=== PATIENT | male | born 1960 | race Caucasian/White ===

== ENCOUNTER 2020-03-24 12:23 | Outpatient (REF) | payer OTHER, SELFPAY | END 2020-03-24 12:24 | disposition home or self-care (01) | LOC: HO.HMGCLDS 12:23 | PROVIDERS: Visit Provider Internal Medicine | DX: Z20.828 Contact with and (suspected) exposure to other viral communicable diseases (principal) | CPT/HCPCS: C9803; U0003 ==

== ENCOUNTER 2020-05-15 09:10 | Outpatient (REF) | payer OTHER, SELFPAY | END 2020-05-15 09:11 | disposition home or self-care (01) | LOC: HO.LAB 09:10 | PROVIDERS: Visit Provider Physician Assistant | DX: J32.1 Chronic frontal sinusitis (principal); Z20.822 Contact with and (suspected) exposure to COVID-19 | CPT/HCPCS: 36415; U0003 ==

== ENCOUNTER 2020-10-05 11:46 | Outpatient (REF) | payer OTHER, SELFPAY ==
--- NOTE | ~2020-10-05 | XR_ITS ---
EXAMINATION: XR WRIST, LEFT CLINICAL INFORMATION: Left wrist pain. COMPARISON: None TECHNIQUE: PA, lateral, and oblique views of the left wrist. FINDINGS: Moderate first carpometacarpal degenerative joint changes are seen with joint space narrowing,. Irregular sclerosis and moderate marginal osteophyte formation. The carpal bones are normally aligned. Mild radiocarpal degenerative joint changes are seen. The distal radius and ulna are intact. The soft tissues are unremarkable. XR/XR wrist LT min 3V IMPRESSION: 1. Moderate first carpometacarpal and mild radiocarpal degenerative joint changes suggesting osteoarthritis. No acute abnormality.
[2020-10-05 13:59] LABS: MANUAL DIFF FLAG NO
[2020-10-05 14:02] LABS: Basophils Percent Auto 0.4 % (0-2); Eosinophils Absolute Auto 0.2 X10*3/uL (0.0-0.4); Hematocrit 44.7 % (42-52); Hemoglobin 15.3 g/dl (14.0-18.0); Imm Gran Abs Auto 0.01 X10*3/uL (0.00-0.03); Imm Gran Pct Auto 0.1 % (0.0-0.4); Lymphocytes Absolute Auto 1.8 X10*3/uL (1.2-4.9); Lymphocytes Percent Auto 24.2 % (20-40); Mean Corpuscular HGB Conc 34.2 g/dl (31.0-36.0); Mean Corpuscular Hemoglobin 31.7 pg (27.0-33.0); Mean Corpuscular Volume 92.5 fL (80-98); Mean Platelet Volume 12.1 fL (9.4-12.4); Monocytes Absolute Auto 0.6 X10*3/uL (0.1-1.2); Monocytes Percent Auto 8.1 % (2-11); Neutrophils Absolute Auto 4.9 X10*3/uL (2.0-8.3); Neutrophils Percent Auto 65.2 % (45-73); Platelet Count 201 X10*3/uL (160-400); Red Blood Count 4.83 X10*6/uL (4.60-5.80); White Blood Count 7.6 X10*3/uL (4.8-10.8)
[2020-10-05 14:25] LABS: Alanine Aminotransferase 52 U/L (0-40); Albumin Level 4.8 g/dL (3.5-5.0); Alkaline Phosphatase 54 U/L (39-117); Anion Gap 17 (12-20); Aspartate Amino Transferase 53 U/L (5-37); Bilirubin Total 1.2 mg/dL (0.0-1.0); Blood Urea Nitrogen 14 mg/dL (9-16); Carbon Dioxide 24 mmol/L (22-29); Chloride 102 mmol/L (96-108); Cholesterol 204 mg/dL; Estimated Glomerular Filt Rate > 60; Glucose Fasting 80 mg/dL (60-99); HDL Cholesterol 64 mg/dL; LDL Cholesterol Calculated 109 mg/dl; Potassium 4.9 mmol/L (3.3-5.1); Sodium 138 mmol/L (135-145); Total Protein 7.2 g/dL (6.5-8.0); Triglycerides 157 mg/dL
[2020-10-05 15:01] LABS: Prostate Specific Antigen Scr 0.36 ng/mL (<0.05-4.0)
== END 2020-10-05 11:47 | disposition home or self-care (01) ==
LOC: HO.HMGCX 11:46
PROVIDERS: PCP Internal Medicine; Visit Provider Hospitalist
DX: M25.532 Pain in left wrist (principal); R73.01 Impaired fasting glucose; I11.9 Hypertensive heart disease without heart failure
CPT/HCPCS: 36415; 73110; 80053; 80061; 84153; 85025

== ENCOUNTER 2020-11-30 10:59 | Outpatient (REF) | payer OTHER, SELFPAY ==
--- NOTE | ~2020-11-30 | XR_ITS ---
EXAMINATION: XR CHEST CLINICAL INFORMATION: Cough COMPARISON: May 24, 2019 TECHNIQUE: 2 views of the chest were obtained. FINDINGS: No significant abnormality is noted involving the heart, lungs, mediastinum, bony thorax or soft tissues. XR/XR chest 2V IMPRESSION: No acute disease.
== END 2020-11-30 11:00 | disposition home or self-care (01) ==
LOC: HO.HMGCX 10:59
PROVIDERS: PCP Internal Medicine; Visit Provider Internal Medicine
DX: R05 Cough (principal)
CPT/HCPCS: 71046

== ENCOUNTER 2020-12-03 08:56 | Emergency (ER) | payer OTHER, SELFPAY ==
--- NOTE | ~2020-12-03 | US_ITS ---
EXAMINATION: US VENOUS ULTRASOUND WITH DOPPLER LOWER EXTREMITY, RIGHT CLINICAL INFORMATION: Right leg swelling. COMPARISON: None TECHNIQUE: Ultrasound of the deep veins is performed from the hip to the calf with compression sonography and color and pulse Doppler assessment. Spectral analysis with color-flow imaging is performed. FINDINGS: There is normal venous compression and respiratory variation and augmented flow. The visualized common femoral vein, superficial femoral vein, profunda femoral vein shows no evidence of deep venous thrombosis. There is acute thrombus visualized in the right popliteal vein and right posterior tibial vein. There is no significant popliteal fossa cyst. If the patient's symptoms persist, followup ultrasound in 5 days 7 days might be of value to exclude proximal propagation from a non-visualized calf vein. US/US venous duplex LE RT IMPRESSION: Acute DVT demonstrated in the right popliteal vein and right posterior tibial vein
[2020-12-03 09:15] VITALS: BP 136/91; PULSE 100; RESP 16; TEMP 37.3; O2SAT 96; BMI 30.1
[2020-12-03 10:04] LABS: Alanine Aminotransferase 28 U/L (0-40); Albumin Level 4.4 g/dL (3.5-5.0); Alkaline Phosphatase 58 U/L (39-117); Anion Gap 13 (12-20); Aspartate Amino Transferase 25 U/L (5-37); Bilirubin Total 1.2 mg/dL (0.0-1.0); Blood Urea Nitrogen 7 mg/dL (9-16); Calcium 9.4 mg/dL (8.4-10.2); Carbon Dioxide 24 mmol/L (22-29); Chloride 106 mmol/L (96-108); Creatinine Clr Calc Pharmacy 102.2; Estimated Glomerular Filt Rate > 60; Glucose Random 104 mg/dL (60-115); Potassium 4.3 mmol/L (3.3-5.1); Sodium 139 mmol/L (135-145); Total Protein 6.7 g/dL (6.5-8.0)
--- NOTE | 2020-12-03 10:07 | ED.EXTPRO ---
HPI - Extremity Problem General Chief complaint: Extremity Injury, Lower Stated complaint: pain and swelling on leg Time Seen by Provider: 12/03/20 10:15 Source: patient Mode of arrival: ambulatory Limitations: no limitations History of Present Illness HPI Narrative: Patient presents to ED for couple days of right lower extremity swelling with pain. Patient states right leg was significantly swollen but has started resolving but still slightly swollen and painful. Patient denies any recent trauma to right lower extremity. Patient states no chest pain or shortness of breath. Patient admits to calf pain. MD Complaint: extremity pain and extremity swelling Related Data Home Medications Medication Instructions Recorded Confirmed flu vacc [id number] 6mos up(PF) ml IM ONCE 05/15/20 10/05/20 Previous Rx's Medication Instructions Recorded metoprolol succinate 25 mg 25 mg PO DAILY #90 tab 04/06/20 tablet,extended release 24 hr valsartan 80 mg tablet (Diovan) 80 mg PO DAILY #30 tab 10/05/20 apixaban 5 mg (74 tabs) tablets in 5 mg PO PER PKG DIR #74 ea 12/03/20 a dose pack (EliquInotec AMD DVT-PE Treat 30D Start) Allergies Allergy/AdvReac Type Severity Reaction Status Date / Time piroxicam [From FELDENE] Allergy Intermediate ITCHINESS Verified 10/05/20 11:25 allopurinol AdvReac Unknown anxiety Verified 10/05/20 11:25 Review of Systems Review of Systems: Yes all other systems are reviewed and are negative and unobtainable due to endotracheal tube Constitutional: Constitutional: Reports as per HPI and Reports no additional constitutional complaints Eyes: Eyes: Reports as per HPI and Reports no additional eye complaints ENT: Reports system reviewed and no additional complaints, except as documented and Reports as per HPI Cardiovascular: Cardiovascular: Reports as per HPI and Reports no additional cardiovascular complaints Respiratory: Respiratory: Reports as per HPI and Reports no additional respiratory complaints Gastrointestinal: Gastrointestinal: Reports as per HPI and Reports no additional gastrointestinal complaints Genitourinary: Genitourinary: Reports no additional male genitourinary complaints and Reports as per HPI Musculoskeletal: Musculoskeletal: Reports no additional musculoskeletal complaints and Reports as per HPI Comments: Right lower extremity swelling and pain Neurologic: Reports system reviewed and no additional complaints, except as documented and Reports as per HPI Psychiatric: Psychiatric: Reports no additional psychiatric complaints and Reports as per HPI Endocrine: Endocrine: Reports no additional endocrine complaints and Reports as per HPI [facility] Past Medical History Medical History GERD (gastroesophageal reflux disease) Gout Hemorrhoids History of echocardiogram Hx of migraines Hypertension Impaired fasting glucose LVH (left ventricular hypertrophy) Surgical History H/O colonoscopy History of elbow surgery History of esophagogastroduodenoscopy (EGD) History of tonsillectomy S/P wrist surgery Status post knee surgery Social History Social History Advance Directives: No Advance Directives Information Provided: No Physical Exam Vital Signs: Vital Signs: Last Vital Signs Temp 99.2 F 12/03/20 09:15 Pulse 100 12/03/20 09:15 Resp 16 12/03/20 09:15 BP 136/91 H 12/03/20 09:15 Pulse Ox 96 12/03/20 09:15 Body Mass Index 30.1 Const: General: cooperative, healthy appearing, comfortable, no acute distress, well developed, alert, awake and Physically active Orientation/consciousness: patient oriented x3 HENMT: Head: Yes normal to inspection, Yes No palpable skull fracture present, Yes normocephalic and Yes atraumatic Eyes: General: appearance normal, both eyes and all related structures Neck: Neck: Yes normal visual inspection, Yes full ROM, Yes no lymphadenopathy, Yes no meningeal signs, Yes trachea midline, Yes supple and No tender Chest: Chest palpation & inspection: normal inspection of the chest and normal palpation of entire chest wall Resp: Effort & Inspection: normal respiratory effort and able to speak in complete sentences Auscultation: clear to auscultation bilaterally Cardio: Jugular venous distension: no JVD Heart sounds: S1 normal heart sound present and S2 normal heart sound present GI: Inspection: Yes normal to inspection and No abdominal wall ecchymosis Palpation (GI): Soft to palpation, not firm, nontender, no guarding and not rigid : General: No CVA tenderness and Yes no CVA tenderness Back/Spine/Pelvis: Back: no CVA tenderness, No CVA tenderness, No back tenderness and No Klein-Colbert sign present Skin: General skin exam: no rashes or lesions noted and elasticity normal Neuro: General: patient oriented x3, gait normal, no meningeal signs and CN's II-XI intact bilaterally Cranial nerves: Yes CN's II-XII intact bilaterally Extrem: Upper/lower leg/hip images: 1. Leg swelling with calf pain. Warmth. Slight erythematous. Vascular/motor/neuro exam intact. Positive for pitting edema Course Course Course Narrative: Patient will have labs drawn. Some right lower extremity ultrasound ordered. Reevaluation(s) Reevaluation #1: Ultrasound came back positive for blood clots. Kidney function is normal. Coags are normal. Patient has normal red blood cells. Patient will be discharged with Eliquis. Time: 10:53 MDM - Extremity (Nontraumatic) MDM Narrative Medical decision making narrative: DVT Lab Data Result diagrams: 12/03/20 10:18 12/03/20 09:34 Labs: Lab Results 12/03/20 12/03/20 12/03/20 Range/Units 09:34 09:34 10:18 WBC 8.8 (4.8-10.8) X10*3/uL RBC 4.60 (4.60-5.80) X10*6/uL Hgb 14.6 (14.0-18.0) g/dl Hct 42.5 (42-52) % MCV 92.4 (80-98) fL MCH 31.7 (27.0-33.0) pg MCHC 34.4 (31.0-36.0) g/dl RDW 13.1 (11.0-16.0) % Plt Count 202 (160-400) X10*3/uL MPV 11.5 (9.4-12.4) fL Immature Gran % (Auto) 0.2 (0.0-0.4) % Neut % (Auto) 56.9 (45-73) % Lymph % (Auto) 27.4 (20-40) % Zapata % (Auto) 11.0 (2-11) % Eos % (Auto) 3.9 (0-4) % Baso % (Auto) 0.6 (0-2) % Lymph # (Auto) 2.4 (1.2-4.9) X10*3/uL Zapata # (Auto) 1.0 (0.1-1.2) X10*3/uL Eos # (Auto) 0.3 (0.0-0.4) X10*3/uL Baso # (Auto) 0.1 (0.0-0.2) X10*3/uL Abs Immat Gran (auto) 0.02 (0.00-0.03) X10*3/uL Absolute Neuts (auto) 5.0 (2.0-8.3) X10*3/uL Absolute Nucleated RBC 0.000 (0.0-0.012) X10*3/uL Nucleated RBC % (auto) 0.0 (0.0-0.2) /100WBC PT 11.7 (9.9-13.0) SEC INR 1.0 (0.9-1.1) APTT 33.1 (24.1-38.0) SEC Sodium 139 (135-145) mmol/L Potassium 4.3 (3.3-5.1) mmol/L Chloride 106 (96-108) mmol/L Carbon Dioxide 24 (22-29) mmol/L Anion Gap 13 (12-20) BUN 7 L (9-16) mg/dL Creatinine 0.89 (0.5-1.4) mg/dL Estim Creat Clear Calc 102.2 Estimated GFR > 60 Random Glucose 104 (60-115) mg/dL Calcium 9.4 (8.4-10.2) mg/dL Total Bilirubin 1.2 H (0.0-1.0) mg/dL AST 25 D (5-37) U/L ALT 28 (0-40) U/L Alkaline Phosphatase 58 (39-117) U/L Total Protein 6.7 (6.5-8.0) g/dL Albumin 4.4 (3.5-5.0) g/dL Discharge Plan Discharge Clinical Impression: DVT (deep venous thrombosis) Patient Disposition: Home, Self-Care Instructions: Deep Vein Thrombosis (ED) Additional Instructions: Your blood work came back normal. Ultrasound came back positive for DVT. He will need Eliquis to treat DVT. Return to the ED immediately for any chest pain, shortness of breath, dizziness, passing out, coughing up blood, or any other concerning symptoms. Prescriptions: New Eliquis DVT-PE Treat 30D Start 5 mg (74 tabs) tablets,dose pack 5 mg PO PER PKG DIR Qty: 74 RF: 0 No Action metoprolol succinate 25 mg tablet extended release 24 hr 25 mg PO DAILY Qty: 90 RF: 3 Fluzone Quad [id number] (PF) 60 mcg (15 mcg x 4)/0.5 mL syringe IM ONCE RF: 0 valsartan [Diovan] 80 mg tablet 80 mg PO DAILY Qty: 30 RF: 3 Referrals: Alda Rowe MD [Primary Care Provider] - 2 days (Right lower extremity DVT.) Nuvia Gay MD [Physician] - 2 days (Right lower extremity DVT.) Stand Alone Forms: Work/School Release Interventions: ED Discharge Assessment Last Done: 12/03/20 11:08 Discharge Date/Time: 12/03/20 11:09 Print Language: Sammarinese
[2020-12-03 10:23] LABS: Prothrombin Time 11.7 SEC (9.9-13.0)
[2020-12-03 10:26] LABS: Partial Thromboplastin Time 33.1 SEC (24.1-38.0)
[2020-12-03 10:41] LABS: Basophils Absolute Auto 0.1 X10*3/uL (0.0-0.2); Basophils Percent Auto 0.6 % (0-2); Eosinophils Absolute Auto 0.3 X10*3/uL (0.0-0.4); Eosinophils Percent Auto 3.9 % (0-4); Hematocrit 42.5 % (42-52); Hemoglobin 14.6 g/dl (14.0-18.0); Imm Gran Abs Auto 0.02 X10*3/uL (0.00-0.03); Imm Gran Pct Auto 0.2 % (0.0-0.4); Lymphocytes Absolute Auto 2.4 X10*3/uL (1.2-4.9); Lymphocytes Percent Auto 27.4 % (20-40); Mean Corpuscular HGB Conc 34.4 g/dl (31.0-36.0); Mean Corpuscular Hemoglobin 31.7 pg (27.0-33.0); Mean Corpuscular Volume 92.4 fL (80-98); Mean Platelet Volume 11.5 fL (9.4-12.4); Neutrophils Percent Auto 56.9 % (45-73); Platelet Count 202 X10*3/uL (160-400); Red Cell Distribution Width 13.1 % (11.0-16.0); White Blood Count 8.8 X10*3/uL (4.8-10.8)
== END 2020-12-03 11:09 | disposition home or self-care (01) ==
PROVIDERS: Physician Assistant; Emergency Provider Student in an Organized Health Care Education/Training Program; PCP Internal Medicine
DX: I82.401 Acute embolism and thrombosis of unspecified deep veins of right lower extremity (principal); M79.661 Pain in right lower leg; R60.0 Localized edema; Z79.899 Other long term (current) drug therapy
CPT/HCPCS: 36415; 80053; 85025; 85610; 85730; 93971; 99283

== ENCOUNTER 2020-12-13 14:49 | Outpatient (REF) | payer OTHER, SELFPAY ==
--- NOTE | ~2020-12-13 | US_ITS ---
EXAMINATION: US VENOUS ULTRASOUND WITH DOPPLER LOWER EXTREMITY, RIGHT CLINICAL INFORMATION: Increasing right leg pain. COMPARISON: Ultrasound right lower extremity venous study 12/03/2020 TECHNIQUE: Ultrasound of the deep veins is performed from the hip to the calf with compression sonography and color and pulse Doppler assessment. Spectral analysis with color-flow imaging is performed. FINDINGS: There is normal venous compression and respiratory variation and augmented flow. The visualized common femoral vein, superficial femoral vein, profunda femoral veins shows no evidence of deep venous thrombosis. There is an occluded right popliteal vein positive for DVT. The right posterior tibial, peroneal veins are patent. If the patient's symptoms persist, followup ultrasound in 5 days 7 days might be of value to exclude proximal propagation from a non-visualized calf vein. US/US venous duplex LE RT IMPRESSION: Persistent DVT in the right popliteal vein unchanged to 12/03/2020 exam. The right posterior tibial vein appears patent at this time was occluded before. The right common femoral, superficial femoral and the greater saphenous veins are patent. There is no evidence of Patino's cyst.
== END 2020-12-13 14:50 | disposition home or self-care (01) ==
LOC: HO.US 14:49
PROVIDERS: PCP Internal Medicine; Visit Provider Internal Medicine Medical Oncology
DX: I82.409 Acute embolism and thrombosis of unspecified deep veins of unspecified lower extremity (principal); M79.604 Pain in right leg
CPT/HCPCS: 93971

== ENCOUNTER 2021-01-02 10:18 | Outpatient (REF) | payer OTHER, SELFPAY ==
[2021-01-02 12:22] LABS: Vitamin D 25-OH Total 31.4 ng/mL (>30)
[2021-01-02 12:24] LABS: Vitamin B12 422 pg/mL (200-900)
[2021-01-02 14:42] LABS: Uric Acid 9.1 mg/dL (3.4-7.0)
[2021-01-06 11:41] LABS: Vitamin B6 93.7 ng/mL (2.1-21.7)
[2021-01-07 10:10] LABS: Vitamin B1 47 nmol/L (8-30)
== END 2021-01-02 10:19 | disposition home or self-care (01) ==
LOC: HO.HMGCLDS 10:18
PROVIDERS: PCP Internal Medicine; Visit Provider Internal Medicine
DX: I10 Essential (primary) hypertension (principal); I82.409 Acute embolism and thrombosis of unspecified deep veins of unspecified lower extremity; M10.9 Gout, unspecified
CPT/HCPCS: 36415; 82306; 82607; 84207; 84425; 84550

== ENCOUNTER 2021-01-10 07:48 | Outpatient (REF) | payer OTHER, SELFPAY ==
--- NOTE | ~2021-01-10 | CT_ITS ---
EXAMINATION: CT CHEST WITH CONTRAST CLINICAL INFORMATION: Former smoker. Cough. Recent DVT. COMPARISON: Previous chest x-ray November 2020. TECHNIQUE: Multidetector volumetric CT imaging of the chest was obtained after the administration of 65 mL of Omnipaque 350 intravenous contrast without immediate adverse reactions. Axial MIP volume rendering provided. Sagittal and coronal reformatted images were obtained. This CT examination was performed using dose optimization techniques as appropriate, variously including the following: *Automated exposure control *Adjustment of mA and/or kV according to patient size (this includes techniques or standardized protocols for targeted exams where dose is matched to indication/reason for exam; i.e. extremities or head) *Use of iterative reconstruction technique DLP: 184 mGy-cm. FINDINGS: RIB TRIM SEPARATOR: Unremarkable. LUNGS: The lungs are clear. No evidence of emphysema interstitial lung disease or bronchiectasis is seen. There is no endobronchial or endotracheal lesion. MEDIASTINUM: There are small mediastinal lymph nodes. No enlarged lymph nodes are seen. There is a small amount of fluid seen in the superior pericardial recess. Mediastinum is otherwise normal. PLEURA: There is no pleural effusion. No pleural mass or thickening. AXILLA: No lymphadenopathy. UPPER ABDOMEN: The liver is low in attenuation suggestive of fatty infiltration. There is lobulated contour to the left kidney. OSSEOUS STRUCTURES: There are degenerative changes of the spine. CT/CT chest w con IMPRESSION: Unremarkable exam.
[2021-01-10 08:22] LABS: Blood Urea Nitrogen 9 mg/dL (9-16); Estimated Glomerular Filt Rate > 60
[2021-01-10] MEDS: iohexoL 350 MG/ML 100 ML INFUS..BTL IV (09:34)
== END 2021-01-10 07:49 | disposition home or self-care (01) ==
LOC: HO.CT 07:48
PROVIDERS: Visit Provider Internal Medicine
DX: R05 Cough (principal); I82.401 Acute embolism and thrombosis of unspecified deep veins of right lower extremity; Z87.891 Personal history of nicotine dependence
CPT/HCPCS: 36415; 71260; 82565; 84520; Q9967

== ENCOUNTER 2021-01-21 10:23 | Emergency (ER) | payer OTHER, SELFPAY ==
[2021-01-21 10:50] VITALS: BP 145/98; PULSE 99; RESP 16; TEMP 36.6; O2SAT 98; BMI 30.1
[2021-01-21] MEDS: Diphth,Pertus(ACell),Tet Adult 0.5 ML SYRINGE IM (11:50)
[2021-01-21] MEDS: Amoxicillin/Potassium Clav 875 MG TABLET PO (11:50)
[2021-01-21] MEDS: Lidocaine HCl 1 % MPF 5 ML VIAL SUBCUT (11:50)
--- NOTE | 2021-01-21 13:03 | ED_ITS ---
HPI - Animal Bite General Chief Complaint: Animal Bite Stated Complaint: DOG BITE Time Seen by Provider: 01/21/21 11:37 Source: patient Mode of arrival: ambulatory History of Present Illness HPI narrative: 60-year-old male with a past medical history of DVT on Eliquis, GERD, gout, hemorrhoids, migraines, HTN, LVH, presenting to the ED complaining of dog bite to right hand since 11:00 p.m. last night. Reports was bit by own dog. Dog is up-to-date on vaccinations, patient's tetanus is unknown. Reports mild pain to area. Denies numbness, tingling, weakness, fever, chills, injury to other area MD complaint: animal bite Related Data Home Medications Medication Instructions Recorded Confirmed ascorbic acid (vitamin C) 500 mg 500 mg PO DAILY 01/16/21 01/16/21 tablet (Vitamin C) cholecalciferol (vitamin D3) 10 10 mcg PO DAILY 01/16/21 01/16/21 mcg (400 unit) capsule (Vitamin D3) colchicine 0.6 mg tablet 1 tab PO DAILY 01/16/21 01/16/21 multivitamin 1 tab PO DAILY 01/16/21 01/16/21 Previous Rx's Medication Instructions Recorded valsartan 80 mg tablet (Diovan) 80 mg PO DAILY #30 tab 10/05/20 apixaban 5 mg tablet (Eliquis) 5 mg PO BID #60 tab 01/16/21 omeprazole 40 mg capsule,delayed 40 mg PO DAILY #90 cap 01/16/21 release amoxicillin 875 mg-potassium 1 tab PO Q12H 7 Days #14 tab 01/21/21 clavulanate 125 mg tablet (Augmentin) bacitracin 500 unit/gram topical 1 appl TOPICAL BID #30 g 01/21/21 ointment Allergies Allergy/AdvReac Type Severity Reaction Status Date / Time piroxicam [From FELDENE] Allergy Intermediate ITCHINESS Verified 01/16/21 08:22 allopurinol AdvReac Unknown anxiety Verified 01/16/21 08:22 Review of Systems Review of Systems: Constitutional: No Fever, No Chills ENT/Mouth: No Ear Pain, No Nasal Congestion, No sore throat, No Rhinorrhea Cardiovascular: No Chest Pain, No SOB Respiratory: No Cough Gastrointestinal: No Nausea, No Vomiting, No Abdominal pain Genitourinary:, No Dysuria, No Urinary Frequency, No Hematuria, No Flank Pain Musculoskeletal: No joint pain, No Myalgias, No Joint Swelling Skin: + Skin Lesions, No rash Neuro: No Weakness, No Numbness, No Paresthesias Yes all other systems are revi ewed and are negative [facility] Past Medical History Attestation statement: The following information was validated with the patient. Medical History (Updated 01/21/21 @ 13:05 by TYRONE Eli) DVT (deep venous thrombosis) GERD (gastroesophageal reflux disease) Gout Hemorrhoids History of echocardiogram Hx of migraines Hypertension Impaired fasting glucose LVH (left ventricular hypertrophy) Surgical History H/O colonoscopy History of elbow surgery History of esophagogastroduodenoscopy (EGD) History of tonsillectomy S/P wrist surgery Status post knee surgery Family History Family History Mother Lung cancer Diabetes Father Alzheimer disease Maternal Aunt Brain cancer Maternal Uncle Brain cancer Paternal Grandmother Dementia Social History Social History Alcohol intake: current Alcohol intake frequency: a few times a week Alcohol type: beer Patient Tobacco Use Status: Former Tobacco user Quit Date: 2017 Tobacco use type: Cigarette e-Cigarette/Vaping Use: Never Used Advance Directives: Yes Advance Directives Information Provided: Yes Advance Directives on File: No Physical Exam Vital Signs: Vital Signs: Last Vital Signs Temp 98 F 01/21/21 10:50 Pulse 99 01/21/21 10:50 Resp 16 01/21/21 10:50 BP 145/98 H 01/21/21 10:50 Pulse Ox 98 01/21/21 10:50 Body Mass Index 30.1 Const: General: cooperative and healthy appearing Orientation/consciousness: patient oriented x3 Limitations: no limitations HENMT: Head: Yes normal to inspection Ears: hearing grossly normal bilaterally General nose exam: Normal external nose present Face and sinus: Yes normal facial exam Eyes: General: appearance normal, both eyes and all related structures EOM: EOMs intact bilaterally Neck: Neck: Yes normal visual inspection and Yes no meningeal signs Resp: Effort & Inspection: normal respiratory effort and no respiratory distress Cardio: Rate: regular rate Peripheral pulses: radial pulses present Skin: Other: 1.5 cm deeplaceration noted between 1st and 2nd MCP web space. No fluctuance/induration or surrounding cellulitis Rashes: no rashes Neuro: General: patient oriented x3 and no meningeal signs Gait exam (Neuro): Normal gait present Extrem: Other: Full range of motion to Hand intact. Finger to thumb opposition intact MDM - Animal Bite MDM Narrative Medical decision making narrative: 60-year-old male with a past medical history of DVT on Eliquis, GERD, gout, hemorrhoids, migraines, HTN, LVH, presenting to the ED complaining of dog bite to right hand since 11:00 p.m. last night. On exam VSS, NAD/well-appearing. Discussed with patient will closely approximate due to depth of laceration, discussed risks of infection Will update patient's tetanus and give 1st dose of antibiotics Procedures Laceration Laceration 1: Site: hand Side (If applicable): right Size (cm): 1.5 Description: irregular Depth: simple, single layer Local Anesthetic: lidocaine 1% Pre-repair: wound explored and irrigated extensively Skin layer closed with: nylon Size (cm): 4-0 Number of sutures: 2 Technique: simple, interrupted Discharge Plan Discharge Clinical Impression: Laceration Dog bite Qualifiers: Encounter type: initial encounter Qualified Code(s): W54.0XXA - Bitten by dog, initial encounter Patient Disposition: Home, Self-Care Instructions: Animal Bite (ED) Additional Instructions: Return to any emergency department or urgent care in 7-10 days to have her stitches taken out Augmentin as antibiotic, please take as prescribed Apply bacitracin or Neosporin to your wound Keep area dry and clean Keep a close eye on it this has high likelihood of infection If the the area becomes red, there is drainage, there is red streaking it is inflamed it becomes very painful return to the ED immediately Prescriptions: New amoxicillin-pot clavulanate [Augmentin] 875-125 mg tablet 1 tab PO Q12H 7 Days Qty: 14 RF: 0 bacitracin 500 unit/gram ointment 1 appl topical BID Qty: 30 RF: 0 No Action multivitamin Tablet 1 tab PO DAILY RF: 0 ascorbic acid (vitamin C) [Vitamin C] 500 mg Tablet 500 mg PO DAILY RF: 0 colchicine 0.6 mg tablet 1 tab PO DAILY RF: 0 cholecalciferol (vitamin D3) [Vitamin D3] 10 mcg (400 unit) Capsule 10 mcg PO DAILY RF: 0 omeprazole 40 mg capsule,delayed release(DR/EC) 40 mg PO DAILY Qty: 90 RF: 3 Eliquis 5 mg Tablet 5 mg PO BID Qty: 60 RF: 3 valsartan [Diovan] 80 mg tablet 80 mg PO DAILY Qty: 30 RF: 3 Referrals: Alda Rowe MD [Primary Care Provider] - 1 week Canales,Elizabeth Mejia MD [Emergency Provider] - 1 week (7-10 days to have your stitches taken out) Interventions: ED Discharge Assessment Last Done: 01/21/21 13:17 Discharge Date/Time: 01/21/21 13:18
== END 2021-01-21 13:18 | disposition home or self-care (01) ==
PROVIDERS: Emergency Provider Emergency Medicine Emergency Medical Services; PCP Internal Medicine
DX: S61.411A Laceration without foreign body of right hand, initial encounter (principal); M79.641 Pain in right hand; W54.0XXA Bitten by dog, initial encounter; Y93.9 Activity, unspecified; Y92.9 Unspecified place or not applicable; Y99.9 Unspecified external cause status; Z87.891 Personal history of nicotine dependence; Z79.899 Other long term (current) drug therapy
CPT/HCPCS: 12001; 90471; 90715; 99283; 99284

== ENCOUNTER 2022-02-28 08:03 | Outpatient (REF) | payer OTHER, SELFPAY ==
[2022-02-28 11:12] LABS: MANUAL DIFF FLAG NO
[2022-02-28 11:20] LABS: Basophils Absolute Auto 0.1 X10*3/uL (0.0-0.2); Basophils Percent Auto 0.7 % (0-2); Eosinophils Absolute Auto 0.3 X10*3/uL (0.0-0.4); Eosinophils Percent Auto 4.7 % (0-4); Hematocrit 48.5 % (42.0-52.0); Hemoglobin 15.9 g/dl (14.0-18.0); Imm Gran Abs Auto 0.02 X10*3/uL (0.00-0.03); Imm Gran Pct Auto 0.3 % (0.0-0.4); Lymphocytes Absolute Auto 2.3 X10*3/uL (1.2-4.9); Lymphocytes Percent Auto 33.3 % (20-40); Mean Corpuscular HGB Conc 32.8 g/dl (31.0-36.0); Mean Corpuscular Hemoglobin 30.5 pg (27.0-33.0); Mean Corpuscular Volume 92.9 fL (80.0-98.0); Mean Platelet Volume 11.8 fL (9.4-12.4); Monocytes Absolute Auto 0.6 X10*3/uL (0.1-1.2); Monocytes Percent Auto 8.1 % (2-11); Neutrophils Absolute Auto 3.7 x10*3/uL (2.0-8.3); Neutrophils Percent Auto 52.9 % (45-73); Platelet Count 247 X10*3/uL (160-400); Red Blood Count 5.22 X10*6/uL (4.60-5.80); Red Cell Distribution Width 13.1 % (11.0-16.0)
[2022-02-28 11:33] LABS: Alanine Aminotransferase 31 U/L (0-40); Albumin Level 4.6 g/dL (3.5-5.0); Alkaline Phosphatase 58 U/L (39-117); Anion Gap 15 (12-20); Aspartate Amino Transferase 32 U/L (5-37); Bilirubin Total 0.8 mg/dL (0.0-1.0); Blood Urea Nitrogen 12 mg/dL (9-16); Calcium 9.8 mg/dL (8.4-10.2); Carbon Dioxide 26 mmol/L (22-29); Chloride 105 mmol/L (96-108); Cholesterol 193 mg/dL; Estimated Glomerular Filt Rate > 60; Glucose Fasting 93 mg/dL (60-99); HDL Cholesterol 59 mg/dL; LDL Cholesterol Calculated 105 mg/dl; Potassium 4.5 mmol/L (3.3-5.1); Sodium 141 mmol/L (135-145); Total Protein 6.8 g/dL (6.5-8.0); Triglycerides 149 mg/dL
== END 2022-02-28 08:04 | disposition home or self-care (01) ==
LOC: HO.HMGCLDS 08:03
PROVIDERS: PCP Internal Medicine; Visit Provider Internal Medicine
DX: Z00.00 Encounter for general adult medical examination without abnormal findings (principal); I82.409 Acute embolism and thrombosis of unspecified deep veins of unspecified lower extremity; I10 Essential (primary) hypertension
CPT/HCPCS: 36415; 80053; 80061; 84550; 85025

== ENCOUNTER 2022-11-15 09:22 | Outpatient (AMB) | payer OTHER, SELFPAY ==
[2022-11-15 09:32] VITALS: BP 126/80; PULSE 96; O2SAT 95; BMI 31.0
--- NOTE | 2022-11-15 09:32 | MHC.PC.OV ---
Vital Signs 11/15/22 09:32 Height 5 ft 10 in Weight 216 lb BMI 31.0 BP 126/80 Blood Pressure Location Lt brachial Position Sitting Pulse 96 Pulse Source Pulse Oximeter Pulse Oximetry (%) 95 Oxygen Delivery Method Room Air Intake Visit Reasons: Annual PE Intake Note: Pt is here today for PE. Allergies piroxicam [From FELDENE] Allergy (Intermediate, Verified 11/15/22 09:34) ITCHINESS allopurinol Adverse Reaction (Unknown, Verified 11/15/22 09:34) anxiety Medication List - Last Reconciled 11/15/22 by Alda Rowe MD apixaban (Eliquis) 5 mg PO BID ascorbic acid (vitamin C) (Vitamin C) 500 mg PO DAILY cholecalciferol (vitamin D3) (Vitamin D3) 10 mcg PO DAILY colchicine 0.6 mg PO BID febuxostat 40 mg PO DAILY multivitamin 1 tab PO DAILY omeprazole 40 mg PO DAILY prednisone 20 mg PO DAILY valsartan (Diovan) 80 mg PO DAILY Tobacco use date assessed: 11/15/22 Dental Screening Dental Screen Date: 11/15/22 Did you have a dental visit in the last 12 months?: Yes Did you have a dental problem in the last 6 months where you did not have access to dental care?: No Was dental information given to patient?: Patient has dentist HPI Annual PE HPI Details Pt presents for PE. Patient complains of having recurrent gout attack every 6 weeks usually triggered by eating seafood. He has been taking febuxostat and colchicine regularly. Patient complains of left shoulder pain for 1 month worse when reaching overhead started after playing golf. [facility], LAT[facility] Medical History Annual physical exam DVT (deep venous thrombosis) GERD (gastroesophageal reflux disease) Gout Hemorrhoids History of echocardiogram Hx of migraines Hypertension Impaired fasting glucose LVH (left ventricular hypertrophy) Surgical History H/O colonoscopy History of elbow surgery History of esophagogastroduodenoscopy (EGD) History of tonsillectomy S/P wrist surgery Status post knee surgery Family History (Updated 11/15/22 @ 09:37 by Michelle Martinez [facility]) Mother Lung cancer Diabetes Father Alzheimer disease Maternal Aunt Brain cancer Maternal Uncle Brain cancer Paternal Grandmother Dementia Brother Substance use disorder Social History Household Members: Spouse Housing: House Alcohol intake: current Alcohol intake frequency: a few times a week Alcohol type: beer Patient Tobacco Use Status: Former Tobacco user Quit Date: 2017 Tobacco use type: Cigarette e-Cigarette/Vaping Use: Never Used service: No Current occupational status: employed Cognitive needs: No Hearing needs: No Vision needs: Yes Questionnaire PHQ-9 Over the last 2 weeks, how often have you been bothered by any of the following problems? 1. Little interest or pleasure in doing things: not at all 2. Feeling down, depressed, or hopeless: not at all 3. Trouble falling or staying asleep, or sleeping too much: not at all 4. Feeling tired or having little energy: not at all 5. Poor appetite or overeating: not at all 6. Feeling bad about yourself - or that you are a failure or have let yourself or your family down: not at all 7. Trouble concentrating on things, such as reading the newspaper or watching television: not at all 8. Moving or speaking so slowly that other people could have noticed. Or the opposite - being so fidgety or restless that you have been moving around a lot more than usual: not at all 9. Thoughts that you would be better off or of hurting yourself in some way: not at all Total score: 0 Depression Screening Interpretation: Negative Source: Developed by Drs. Antonio Lynne, Ashly Nguyễn, Troy Olson and colleagues, with an educational jesus from [employer]. Thrive Questionnaire Date Thrive assessed: 11/15/22 I am a: Patient What is your living situation today?: I have a steady place to live Within the past 12 months, did the food you bought not last and you didn't have the money to get more?: Never true Within the past 12 months, did you worry whether your food would run out before you got money to buy more?: Never true Do you have trouble paying for medicines?: No Do you have trouble getting transportation to medical appointments?: No Do you have trouble paying your heating and electricity bill?: No Do you have trouble taking care of your child, family member or friend?: No Do you have trouble with day-to-day activities such as bathing, preparing meals, shopping, managing finances, etc.?: No Are you currently unemployed and looking for a job?: No Are you interested in more education?: No Please select the resources that you would like help with: None Currently or been in a relationship where the following occur: no concerns reported AUDIT C Alcohol Use Questionnaire (AUDIT-C) 1. How often do you have a drink containing alcohol?: 2-4 times a month 2. How many drinks containing alcohol do you have on a typical day when you are drinking?: 1 or 2 3. How often do you have six or more drinks on one occasion?: Never Total Score: 2 BABATUNDE-7 AMB Questionnaire BABATUNDE-7 Date BABATUNDE - 7 assessed: 11/15/22 Feeling nervous, anxious, or on edge: 0 = Not at all Not being able to stop or control worryin = Not at all Worrying too much about different things: 0 = Not at all Trouble relaxin = Not at all Being so restless that it is hard to sit still: 0 = Not at all Becoming easily annoyed or irritable: 0 = Not at all Feeling afraid as if something awful might happen: 0 = Not at all Total BABATUNDE-7 score (0-4 normal; 5-9 mild; 10-14 moderate; 15-21 severe): 0 Source: Developed by Drs. Antonio Lynne, Ashly Nguyễn, Troy Olson and colleagues, with an educational jesus from [employer]. Review of Systems Const All systems reviewed & are unremarkable except as noted in HPI and below Reports no additional complaints Eyes Reports no additional complaints ENT Reports no additional complaints Card Reports no additional complaints Resp Reports no additional complaints GI Reports no additional complaints Reports no additional complaints Musc Reports no additional complaints Physical exam (Primary Care) Vital Signs: Last Vital Signs Pulse 96 11/15/22 09:32 BP 126/80 11/15/22 09:32 Pulse Ox 95 11/15/22 09:32 Oxygen Delivery Method Room Air 11/15/22 09:32 BMI result Body Mass Index 31.0 Tobacco/Smoking Status: Tobacco use Status Tobacco use date assessed 11/15/22 11/15/22 09:39 Patient Tobacco Use Status Former Tobacco user 11/15/22 09:39 Tobacco use type Cigarette 11/15/22 09:39 e-Cigarette/Vaping Use Never Used 11/15/22 09:39 PHQ-9: PHQ-9 Score PHQ-9: Total score 0 11/15/22 09:39 Depression Screening Interpretation: Negative Thrive Assessment: Date of Thrive Assessment Date Thrive assessed 11/15/22 11/15/22 09:39 Currently or been in a relationship where the following occur: no concerns reported Const General: no acute distress HENMT Head: Yes normal to inspection Ears: hearing grossly normal bilaterally Face and sinus: Yes normal facial exam Throat: Yes posterior oropharynx normal Eyes General: appearance normal, both eyes and all related structures Neck Neck: Yes no lymphadenopathy and Yes supple Resp Effort & Inspection: normal respiratory effort Auscultation: clear to auscultation bilaterally Cardio Rhythm: regular rhythm Heart sounds: S1 normal heart sound present and S2 normal heart sound present GI Inspection: Yes normal to inspection Palpation (GI): Soft to palpation Percussion: Yes normal to percussion Auscultation: normal bowel sounds Extrem Other: decreased range of motion of the left shoulder, anterior and lateral aspect tenderness, no joint swelling General: Yes no clubbing, cyanosis or edema Assessment and Plan Assessment & Plan (1) Gout attack: Code(s): M10.9 - Gout, unspecified Plan: Increase febuxostat to 80 mg and check uric acid level in 2 months. Continue colchicine and prednisone p.r.n. for acute attacks (2) Hypertension: Code(s): I10 - Essential (primary) hypertension Qualifiers: Hypertension type: essential hypertension Qualified Code(s): I10 - Essential (primary) hypertension Plan: Continue valsartan (3) Annual physical exam: Code(s): Z00.00 - Encounter for general adult medical examination without abnormal findings Plan: well balanced diet, regular exercise discussed, pt is overdue for colonoscopy (4) Shoulder pain, left: Code(s): M25.512 - Pain in left shoulder Plan: check XR and try exercises for frozen shoulder, pt leaves for [place] in [place] for 6 months Orders: Orders Comprehensive [place]. Panel Fast 2 Months I10 - Essential (primary) hypertension, M10.9 - Gout, unspecified, Z00.00 - Encounter for general adult medical examination without abnormal findings Complete Blood Count Auto Diff 2 Months I10 - Essential (primary) hypertension, M10.9 - Gout, unspecified, Z00.00 - Encounter for general adult medical examination without abnormal findings Lipid Panel 2 Months I10 - Essential (primary) hypertension, M10.9 - Gout, unspecified, Z00.00 - Encounter for general adult medical examination without abnormal findings PSA,Total (Free>4and<10) 2 Months I10 - Essential (primary) hypertension, M10.9 - Gout, unspecified, Z00.00 - Encounter for general adult medical examination without abnormal findings Uric Acid 2 Months I10 - Essential (primary) hypertension, M10.9 - Gout, unspecified, Z00.00 - Encounter for general adult medical examination without abnormal findings XR shoulder LT min 2V Today M25.512 - Pain in left shoulder Referrals Gastroenterology Referral K63.5 - Polyp of colon, Z00.00 - Encounter for general adult medical examination without abnormal findings Medications: New febuxostat 80 mg PO DAILY 90 tabs 2RF prednisone 50 mg PO DAILY 30 tabs 2RF Refilled colchicine 0.6 mg PO BID 180 tabs 3RF gout Discontinued febuxostat Discontinued Reason: Doctor's Order 40 mg PO DAILY 90 tabs 3RF prednisone Discontinued Reason: Doctor's Order 20 mg PO DAILY 5 tabs 0RF Coding Level of Care Code Est Pt Prev Care 40-64y(08600) Diagnoses Gout attack M10.9 Hypertension I10 Hypertension type: essential hypertension Annual physical exam Z00.00 Shoulder pain, left M25.512
== END 2022-11-15 10:26 | disposition home or self-care (01) ==
PROVIDERS: Visit Provider Internal Medicine
DX: M10.9 Gout, unspecified (principal); I10 Essential (primary) hypertension; Z00.00 Encounter for general adult medical examination without abnormal findings; M25.512 Pain in left shoulder
CPT/HCPCS: 99396

== ENCOUNTER 2023-01-22 09:50 | Outpatient (REF) | payer OTHER, SELFPAY ==
--- NOTE | ~2023-01-22 | XR_ITS ---
EXAMINATION: XR CHEST CLINICAL INFORMATION: Cough COMPARISON: Chest radiograph from 11/30/2020 TECHNIQUE: 2 views of the chest were obtained. FINDINGS: Right basilar atelectasis. No pneumothorax. Trachea is midline. Cardiac mediastinal silhouette is not enlarged. Aorta demonstrates tortuosity. No large pleural effusion. Degenerative changes of the thoracolumbar spine. Soft tissues are unremarkable. XR/XR chest 2V IMPRESSION: Right basilar atelectasis.
[2023-01-22 13:09] LABS: MANUAL DIFF FLAG NO
[2023-01-22 13:29] LABS: Basophils Percent Auto 0.9 % (0-2); Eosinophils Absolute Auto 0.1 X10*3/uL (0.0-0.4); Eosinophils Percent Auto 2.9 % (0-4); Hematocrit 44.1 % (42.0-52.0); Imm Gran Abs Auto 0.01 X10*3/uL (0.00-0.03); Imm Gran Pct Auto 0.2 % (0.0-0.4); Lymphocytes Absolute Auto 1.7 X10*3/uL (1.2-4.9); Lymphocytes Percent Auto 38.1 % (20-40); Mean Corpuscular Hemoglobin 32.2 pg (27.0-33.0); Mean Corpuscular Volume 94.6 fL (80.0-98.0); Mean Platelet Volume 11.7 fL (9.4-12.4); Monocytes Absolute Auto 0.4 X10*3/uL (0.1-1.2); Monocytes Percent Auto 9.5 % (2-11); Neutrophils Absolute Auto 2.2 x10*3/uL (2.0-8.3); Neutrophils Percent Auto 48.4 % (45-73); Platelet Count 203 X10*3/uL (160-400); Red Blood Count 4.66 X10*6/uL (4.60-5.80); Red Cell Distribution Width 13.2 % (11.0-16.0); White Blood Count 4.5 X10*3/uL (4.8-10.8)
[2023-01-22 14:01] LABS: Alanine Aminotransferase 38 U/L (0-40); Albumin Level 4.3 g/dL (3.5-5.0); Alkaline Phosphatase 44 U/L (39-117); Anion Gap 13 (12-20); Aspartate Amino Transferase 60 U/L (5-37); Bilirubin Total 1.1 mg/dL (0.0-1.0); Blood Urea Nitrogen 11 mg/dL (9-16); Calcium 9.6 mg/dL (8.4-10.2); Carbon Dioxide 24 mmol/L (22-29); Chloride 110 mmol/L (96-108); Cholesterol 173 mg/dL (<200); Estimated Glomerular Filt Rate > 60; Glucose Fasting 91 mg/dL (60-99); HDL Cholesterol 65 mg/dL (>40); LDL Cholesterol Calculated 84 mg/dL (<100); Sodium 143 mmol/L (135-145); Total Protein 6.8 g/dL (6.5-8.0); Triglycerides 122 mg/dL (<150); Uric Acid 6.7 mg/dL (3.4-7.0)
[2023-01-22 14:15] LABS: PSA,Total (Free>4and<10) 1.64 ng/mL (0.00-4.00)
== END 2023-01-22 09:51 | disposition home or self-care (01) ==
LOC: HO.HMGCX 09:50
PROVIDERS: Absent Provider Internal Medicine; PCP Internal Medicine; Visit Provider Internal Medicine
DX: R05.9 Cough, unspecified (principal); I10 Essential (primary) hypertension; M10.9 Gout, unspecified; Z00.00 Encounter for general adult medical examination without abnormal findings; Z12.5 Encounter for screening for malignant neoplasm of prostate
CPT/HCPCS: 36415; 71046; 80053; 80061; 84153; 84550; 85025

== ENCOUNTER 2023-01-22 10:03 | Outpatient (AMB) | payer OTHER, SELFPAY ==
--- OUTSIDE RECORDS SUMMARY | 2023-01-22 10:05 | XMS_ITS | Continuity of Care Document ---
Author Name Unknown Organization [facility] ter Address [address] [place] [address]- Care Team Providers Care Sail Repair Person Name Role Phone Erinn Galvin Primary Care Physician Unava ilable Encounter [facility] [place] Date(s): 11/15/19 - 11/16/[address] [address]- [facility] Discharge Disposition: A-Transfer VNA/Home Health Attending Physician: Enmanuel Rich MD Admitting Physician: Enmanuel Rich MD Referring Physician: Enmanuel Rich MD Allergies, Adverse Reactions, Alerts Substance Reaction Severity Status allopurinol Active Feldene Active Medications acetaminophen 325 mg oral tablet 650 mg, By Mouth, Every 6 hours, Refills 0, Maintenance, 11/16/19 8:06:00 EDT Start Date: 11/16/19 Status: Ordered Aspirin Tablet 325 mg, By Mouth, 2 times a day, Refills 0, Maintenance, 11/16/19 8:06:00 EDT Start Date: 11/16/19 Status: Ordered celecoxib 200 mg oral capsule 1 capsule = 200 mg, By Mouth, Daily, 0 Refills, Maintenance, 11/16/19 8:06:00 EDT, Capsule Start Date: 11/16/19 Status: Ordered Colace Capsule 100 mg, 1, capsule, By Mouth, 2 times a day, Refills 0, Maintenance, 11/16/19 8:06:00 EDT Start Date: 11/16/19 Status: Ordered colchicine 0.6 mg oral capsule 1 capsule = 0.6 mg, By Mouth, Daily, # 30 capsule, 0 Refills, Maintenance, 11/12/19 13:32:00 EDT, Capsule Start Date: 11/12/19 Status: Ordered HYDROmorphone 2 mg oral tablet See Instructions, PRN Pain , Mild, Take 1-2 tablets By Mouth Every 4 hours as needed for pain, # 84tablet, 0 Refills, Acute 11/23/19 8:05:00 EDT, 11/16/19 8:04:00 EDT, Tablet, [facility], Partial fill upon patient request, 177, cm, 11/02... Start Date: 11/16/19 Stop Date: 11/23/19 Status: Ordered metoprolol 25 mg oral tablet, extended release 25 mg, 1, tablet, By Mouth, Daily, # 30 tablet, Refills 0, Maintenance, 11/12/19 13:32:00 EDT Start Date: 11/12/19 Status: Ordered MiraLax Powder 1 pack/packet = 17 Gm, By Mouth, Daily, 0 Refills, Maintenance, 11/16/19 8:06:00 EDT, Powder Start Date: 11/16/19 Status: Ordered MOM Liquid 30 mL, By Mouth, Daily, PRN Constipation, 0 Refills, Maintenance, 11/16/19 8:06:00 EDT, Suspension Start Date: 11/16/19 Status: Ordered omeprazole 40 mg oral enteric coated capsule 1 capsule = 40 mg, By Mouth, Daily, # 30 capsule, 0 Refills, Maintenance, 11/12/19 13:32:00 EDT, ECCapsule Start Date: 11/12/19 Status: Ordered senna 187 mg oral tablet 1 tablet = 8.6 mg, By Mouth, Daily at bedtime, 0 Refills, Maintenance, 11/16/19 8:06:00 EDT, Tablet Start Date: 11/16/19 Status: Ordered Results Radiology Reports * Exam Date Time Procedure Performing Provider Status 11/15/19 10:32 PM Pelvis 1 or 2 Views Troy Terry; Au th (Verified) Notes: (Pelvis 1 or 2 Views) Reason For Exam: Postop Prosthesis RESULT: Pelvis 1 or 2 Views Pelvis 1 or 2 Views Reason: Postop Prosthesis; Clinical Question(s): Status of Hip Prosthesis; Special Instructions: RIGHT Hip - Do today at 2200 COMPARISON: None. FINDINGS: Right total hip arthroplasty with intact hardware and normal alignment. Minimal degenerative changes of the left hip. IMPRESSION: No apparent complication. 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 ? IMPRESSION: Unremarkable intraop study. WSN: [id number] Ordering Physician: Enmanuel Rich Dictated By: Antonio Cox MD Dictated Date/Time: 11/15/19 1:42 pm Reviewed By: Antonio Cox MD Signed By: Antonio Cox MD Signed Date/Time: 11/15/19 1:42 pm Transcribed By: NAWAF Transcribed Date/Time: 11/15/19 1:42 pm Vital Signs Most recent to oldest [Reference Range]: 1 2 3 Height 177 cm (11/16/19 7:37 AM) 177 cm (11/16/19 3:30 AM) 177 cm (11/15/19 11:46 PM) Weight 94.8 kg (11/15/19 12:15 PM) 94.8 kg (11/15/19 7:30 AM) Oxygen Saturation [94-100 %] 97 % (11/16/19 7:37 AM) 96 % (11/16/19 3:30 AM) 98 % (11/15/19 11:46 PM) Pulse Rate [55-90 bpm] 66 bpm (11/16/19 7:37 AM) 52 bpm *L* (11/16/19 3:30 AM) 60 bpm (11/15/19 11:46 PM) Body Mass Index [18.5-24.99] 30.26 *>HHI* (11/15/19 12:15 PM) 30.26 *>HHI* (11/15/19 7:30 AM) Blood Pressure [90-138/55-84 mm Hg] 125/93mm Hg (11/16/19 7:37 AM) 129/76mm Hg (11/16/19 3:30 AM) 114/82mm Hg (11/15/19 11:46 PM) Respiratory Rate [16-30 br/min] 18 br/min (11/16/19 11:50 AM) 18 br/min (11/16/19 8:59 AM) 18 br/min (11/16/19 8:58 AM) Temperature [96.8-100.4 DegF] 97.5 DegF (11/16/19 7:37 AM) 97.9 DegF (11/16/19 3:30 AM) 98.1 DegF (11/15/19 11:46 PM) Liters per Minute 0 L/min (11/15/19 2:05 PM) Mode of Delivery (Oxygen) Room air (11/16/19 7:37 AM) Room air (11/16/19 3:30 AM) Room air (11/15/19 11:46 PM) Blood pressure sites Arm, left (11/16/19 7:37 AM) Arm, left (11/15/19 5:21 PM) Arm, left (11/15/19 3:30 PM) Temperature Route Oral (11/16/19 7:37 AM) Oral (11/16/19 3:30 AM) Oral (11/15/19 11:46 PM) Dry Weight 94.8 kg (11/15/19 7:30 AM)
--- OUTSIDE RECORDS SUMMARY | 2023-01-22 10:05 | XMS_ITS | Continuity of Care Document ---
Author Name Unknown Organization [facility] Address [address] [place] [address]- Care Team Providers Care Cardboard Cutter Name Role Phone Erinn Galvin Primary Care Physician Chioma lyles Encounter 11/17/19 - 11/24/19 [facility] [address] [place] [address]- [facility] Discharge Disposition: GOALS MET Allergies, Adverse Reactions, Alerts Substance Reaction Severity [...] EDT, Capsule Start Date: 11/12/19 Status: Ordered metoprolol 25 mg oral tablet, [...]
--- OUTSIDE RECORDS SUMMARY | 2023-01-22 10:05 | XMS_ITS | Patient Health Record ---
Author Name Unknown Organization [facility] Address [address] [place] [address] Care Team Providers Care Printing Screen Assembler Name Role Phone Alda Rowe MD Primary Care Provider Antonio Guevara Unavailable [phone] ALLERGIES Allergen (clinical drug ingredient) Drug/Non Drug Allergy documented on EMR Reaction Allergy Type Onset Date Status piroxicam Feldene Unknown Drug Allergy Active REASON FOR REFERRAL No Information MEDICATIONS Medication SIG (Take, Route, Frequency, Duration) Notes Start Date End Date Status Colchicine Active Anusol-HC 25 MG 1 suppository Rectal Twice a day as needed for hemorrhoidal pain for 30 day(s) 05/21/2020 Active Hkozxmufnl-Cmmjbbh-Lwprm ine PRN H/A Active ibuprofen PRN Active Omeprazole Active Anusol-HC 25 MG 1 suppository Rectal Twice a day for hemorrhoidal pain for 30 day(s) 05/21/2020 Active Anusol-HC 2.5 % 1 application Boarding House Manager ally Twice a day for hemorrhoidal pain for 30 days 05/21/2020 Active IMMUNIZATIONS Vaccine Route Administration Date Status Comme nts Influenza Unknown 09/03/2019 Administered SOCIAL HISTORY Tobacco Use: Social History Observation Description Date Details (start date - stop date) Former Smoker NA - NA Sex Assigned At : Social History Observation Description Sex Assigned At Unknown Tobacco Use/Smoking Question Answer Notes Patient is a former smoker When did you stop smoking? jun 06, 2017 How long has it been since you last smoked? 1-5 years Alcohol Screen Question Answer Notes Did you have a drink contain ing alcohol in the past year? Yes How often did you have a dri nk containing alcohol in the past year? 4 or more times a week (4 points) How many drinks did you have on a typical day when you were drinking in the past year? 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) Active confirmed Koehler's esophagus (396247530) Problem History of adenomatous polyp of colon (Z86.010) Active confirmed History of adenomatous polyp of colon (481222832) PLAN OF TREATMENT Future Test Test Name Order Date UPPER GI ENDOSCOPY 11/21/2015 COLONOSCOPY 11/21/2015 UPPER GI ENDOSCOPY 07/04/2020 COLONOSCOPY 07/04/2020 Next Appt Details Provider Name:Antonio Baird Joi , 06/06/2023 01:20:00 PM, [address] [place] [address], [address], [place], [address], Insurance Providers Payer Name Payer Address Payer Phone Subscriber Number Group Number Insured Name Patient Relationship to Insured Coverage Start Date Coverage End Date [employer] [address] [place] [phone] [id number] BULMARO BABCOCK Self - patient is the insured MEDICAL (GENERAL) HISTORY Medical History History ICD Code Denies OR,DM,CVA,Lung disease,renal dise ase He describes a negative colonoscopy in h is 40's at [facility] [place] Gout GERD--EGD 03/2016 with a mod erate-sized hiatal hernia and small area of Koehler's mucosa, without any dysplasia nor esophagitis Screening colonoscopy 03/2016 with a sma ll tubular adenoma removed Surgical History Surgery Date(Month/Year) Left knee 2006 Right knee--infected bursa 89,94,97,2000 ,2004 Left elbow as a child Hemorrhoid surgery Right hip replacement 11/15/2019
--- OUTSIDE RECORDS SUMMARY | 2023-01-22 10:05 | XMS_ITS | Continuity of Care Document ---
Author Name Unknown Organization [facility] ter Address [address] [place] [address]- Care Team Providers Care Launch Steward Name Role Phone Erinn Galvin Primary Care Physician Unava ilable Encounter [facility] [place] Date(s): 11/06/19 - 12/12/[address] [address]- [facility] Attending Physician: Enmanuel Rich MD Admitting Physician: [...]
--- OUTSIDE RECORDS SUMMARY | 2023-01-22 10:05 | XMS_ITS | Continuity of Care Document ---
Author Name Unknown Organization [facility] ter Address [address] [place] [address]- Care Team Providers Care Hiv Cts Specialist Name Role Phone Erinn Galvin Primary Care Physician Unava ilable Encounter [facility] [place] Date(s): 10/21/19 - 11/27/[address] [address] [facility] Attending Physician: Enmanuel Rich MD Admitting Physician: [...]
--- OUTSIDE RECORDS SUMMARY | 2023-01-22 10:05 | XMS_ITS | Continuity of Care Document ---
Author Name Unknown Organization [facility] ter Address [address] [place] [address]- Care Team Providers Care Waiter/Waitress Formal Name Role Phone Erinn Galvin Primary Care Physician Unava ilable [place] [facility] [place]15/[place] - 12/15/[address] [address]- [facility] Attending Physician: Not on Staff, Attending MD Admitting Physician: Not on Staff, Admitting MD Referring Physician: Not on Staff, Referring MD Allergies, Adverse Reactions, Alerts Substance Reaction [...]
--- OUTSIDE RECORDS SUMMARY | 2023-01-22 10:05 | XMS_ITS | Continuity of Care Document ---
Author Name Unknown Organization [facility] ter Address [address] [place] [address]- Care Team Providers Care Resizer Operator Name Role Phone Erinn Galvin Primary Care Physician Unava ilable Encounter [facility] [place] Date(s): 11/12/19 - 12/12/[address] [address]- [facility] Attending Physician: Rose Trotter Admitting Physician: Rose Trotter Referring Physician: Rose Trotter Allergies, Adverse Reactions, Alerts Substance Reaction Severity [...]
--- NOTE | 2023-01-22 10:59 | MHC.OFFWIV ---
Intake Vital Signs 01/22/23 11:00 Height 5 ft 10 in Weight 223 lb BMI 32.0 BP 118/78 Blood Pressure Location Rt brachial Position Sitting Pulse 107 H Pulse Source Pulse Oximeter Pulse Oximetry (%) 94 Oxygen Delivery Method Room Air Intake Visit Reasons: EST/shortness of breath, lung pain Intake Note: Patient here for SOB, he states he had Covid in the beginning of december and since then he has been short of breathe. He states that when he takes a deep breathe his chest and lungs hurt. Patient Tobacco Use Status: Former Tobacco user Quit Date: 2017 Allergies piroxicam [From FELDENE] Allergy (Intermediate, Verified 01/22/23 12:29) ITCHINESS allopurinol Adverse Reaction (Unknown, Verified 01/22/23 12:29) anxiety Medication List - Last Reconciled 01/22/23 by Skinny Smith MD apixaban (Eliquis) 5 mg PO BID colchicine (gout) 0.6 mg PO BID febuxostat 80 mg PO DAILY multivitamin 1 tab PO DAILY omeprazole 40 mg PO DAILY valsartan (Diovan) 80 mg PO DAILY Do you need a note to return to daycare/school/sports/work: No HPI EST/shortness of breath, lung pain HPI Details 62-year-old male presents to the office for a sick visit. Patient had COVID a month ago. Subsequently he has been having exertional shortness of breath. Minimal cough. No symptoms at rest or while lying down. No fevers or chills. [facility] Medical History Annual physical exam DVT (deep venous thrombosis) GERD (gastroesophageal reflux disease) Gout Hemorrhoids History of echocardiogram Hx of migraines Hypertension Impaired fasting glucose LVH (left ventricular hypertrophy) Surgical History H/O colonoscopy History of elbow surgery History of esophagogastroduodenoscopy (EGD) History of tonsillectomy S/P wrist surgery Status post knee surgery Family History (Updated 11/15/22 @ 09:37 by Michelle Martinez Afsaneh) Mother Lung cancer Diabetes Father Alzheimer disease Maternal Aunt Brain cancer Maternal Uncle Brain cancer Paternal Grandmother Dementia Brother Substance use disorder Social History Household Members: Spouse Housing: House Alcohol intake: current Alcohol intake frequency: a few times a week Alcohol type: beer Patient Tobacco Use Status: Former Tobacco user Quit Date: 2017 Tobacco use type: Cigarette e-Cigarette/Vaping Use: Never Used service: No Current occupational status: employed Cognitive needs: No Hearing needs: No Vision needs: Yes Physical Exam Vital Signs: Last Vital Signs Pulse 107 H 01/22/23 11:00 BP 118/78 01/22/23 11:00 Pulse Ox 94 01/22/23 11:00 Oxygen Delivery Method Room Air 01/22/23 11:00 BMI result Body Mass Index 32.0 Const General: cooperative and healthy appearing Nutritional Appearance: well nourished Orientation/consciousness: patient oriented x3 Limitations: no limitations HEENT Head: Yes normal to inspection Eyes General: appearance normal, both eyes and all related structures Neck Neck: Yes normal visual inspection Chest Chest palpation & inspection: normal palpation of entire chest wall Resp Effort & Inspection: normal respiratory effort Neuro General: patient oriented x3 Office Procedures EKG Details: Normal sinus rhythm. 25212-[id number], Complete Assessment & Plan Assessment & Plan (1) Shortness of breath: Code(s): R06.02 - Shortness of breath Plan: Chest x-ray images were personally reviewed by me. EKG was reviewed by me. Most likely post COVID inflammation in the lungs. Patient was advised to take prednisone 50 mg once a day for 3 days. He already has the prednisone and so no prescription was sent. An antibiotic has been added to the regimen has an immunomodulator P Orders: Orders XR chest 2V Today R05.9 - Cough, unspecified AMB EKG-In Office Today R06.02 - Shortness of breath Coding Level of Care Code Est Pt Level 4 (14433) Diagnoses Shortness of breath R06.02 CPT Codes EKG - CPT: 17939-[id number], Complete ([id number])
[2023-01-22 11:00] VITALS: BP 118/78; PULSE 107; O2SAT 94; BMI 32.0
== END 2023-01-22 12:40 | disposition home or self-care (01) ==
PROVIDERS: PCP Internal Medicine; Visit Provider Internal Medicine
DX: R06.02 Shortness of breath (principal)
CPT/HCPCS: 93000; 99214